=== PATIENT | male | born 1985 | race American Indian/Alaskan Native ===

== ENCOUNTER 2018-05-19 14:53 | Outpatient (CLI) | payer MEDICARE | END 2018-05-19 14:54 | disposition home or self-care (01) | LOC: C.MRIC 14:54 | DX: M54.12 Radiculopathy, cervical region (principal); M54.14 Radiculopathy, thoracic region; M24.819 Other specific joint derangements of unspecified shoulder, not elsewhere classified ==

== ENCOUNTER 2018-07-07 14:42 | Outpatient (CLI) | payer MEDICARE | END 2018-07-07 14:43 | disposition home or self-care (01) | LOC: C.MRIC 14:43 | DX: M23.92 Unspecified internal derangement of left knee (principal) ==